=== PATIENT | male | born 1965 ===

== ENCOUNTER 2019-06-06 13:10 | Emergency (ER) | payer OTHER ==
[~2019-06-06] VITALS: Ht 180.3 cm; Wt 95.3 kg
[2019-06-06] MEDS ORDERED: KAPSPARGO SPRIN25 MG (13:29)
[2019-06-06] MEDS ORDERED: AMLODIPINE BESYL5 MG (13:30)
[2019-06-06] MEDS ORDERED: BACTRIM DS TAB1 EACH PO (13:50)
== END 2019-06-06 14:05 | disposition home or self-care (01) ==
LOC: ER 13:10
DX: S81.001A Unspecified open wound, right knee, initial encounter (principal); W22.8XXA Striking against or struck by other objects, initial encounter; Y93.89 Activity, other specified; Y92.018 Other place in single-family (private) house as the place of occurrence of the external cause; Y99.8 Other external cause status; T14.8XXA Other injury of unspecified body region, initial encounter